=== PATIENT | male | born 1950 | race American Indian/Alaskan Native ===

== ENCOUNTER 2020-01-03 07:47 | Inpatient (IN) | payer MEDICARE ==
--- NOTE | 2020-01-03 08:20 | Emergency Department Report ---
HPI - General Chief Complaint: Dyspnea/Respdistress Time Seen by Provider: 01/03/20 08:04 - [facility] HPI: Room 23 The patient is a 69-year-old male present with a chief complaint of shortness of breath. Patient is visiting from out of town and states he normally receives dialysis every Saturday, and Saturday. Patient states he did not have dialysis arranged for his visit and was last dialyzed on 12/29/2019 while in the hospital.. Patient complained of shortness of breath for the past 2 hours. EMS was called and the patient was found to be hypoxic to 70% on room air. Patient was placed on CPAP and had a SPO2 in the low 90s. Patient was switched over to BiPAP upon arrival to the ED has a sat of 100% currently. Patient admits to an occasional cough but denies fever. ED Past Medical Hx - Past Medical History Hx Hypertension: Yes Hx Congestive Heart Failure: Yes Hx Diabetes: Yes Hx Renal Disease: Yes (ESRD) - Family History Family history: no significant - Social History Smoking Status: Never Smoker Substance Use Type: None ED Review of Systems ROS: Stated complaint: RESPIRATORY DISTRESS Other details as noted in HPI Constitutional: denies: fever Respiratory: cough, shortness of breath Endocrine: no symptoms reported Physical Exam - Physical Exam Vital Signs: Vital Signs 01/03/20 01/03/20 01/03/20 07:51 08:00 08:03 Temperature 97.8 F Pulse Rate 101 H Respiratory 15 Rate Blood Pressure 158/104 147/96 O2 Sat by Pulse 95 99 Oximetry Physical Exam: GENERAL: The patient is well-developed well-nourished male sitting on stretcher with BiPAP in place not appearing to be in acute distress. [] HEENT: Normocephalic. Atraumatic. Extraocular motions are intact. Patient has moist mucous membranes. NECK: Supple. Trachea midline CHEST/LUNGS: Clear to auscultation. There is no respiratory distress noted. HEART/CARDIOVASCULAR: Regular. There is no tachycardia. There is no gallop rub or murmur. ABDOMEN: Abdomen is soft, nontender. Patient has normal bowel sounds. There is no abdominal distention. SKIN: There is no rash. There is no edema. There is no diaphoresis. NEURO: The patient is awake, alert, and oriented. The patient is cooperative. The patient has normal speech MUSCULOSKELETAL: There is no evidence of acute injury. ED Course Vital Signs 01/03/20 01/03/20 01/03/20 07:51 08:00 08:03 Temperature 97.8 F Pulse Rate 101 H Respiratory 15 Rate Blood Pressure 158/104 147/96 O2 Sat by Pulse 95 99 Oximetry - Consultations Consultation #1: 01/03/20 11:56 Case discussed with solar power installer on-call Dr. Romeo- will arrange for hemodialysis ED Medical Decision Making - Lab Data Result diagrams: 01/03/20 09:11 01/03/20 09:11 Laboratory Tests 01/03/20 01/03/20 01/03/20 08:10 09:11 09:11 WBC 5.7 RBC 3.45 L Hgb 8.6 L Hct 29.0 L MCV 84 MCH 25 L MCHC 30 L RDW 19.3 H Plt Count 211 Lymph % (Auto) 5.9 L [place] % (Auto) 10.6 H Eos % (Auto) 0.7 Baso % (Auto) 1.1 Lymph # (Auto) 0.3 L [place] # (Auto) 0.6 Eos # (Auto) 0.0 Baso # (Auto) 0.1 Seg Neutrophils % 81.7 H Seg Neutrophils # 4.7 PT 15.3 H INR 1.18 H ABG pH 7.345 L ABG pCO2 34.7 ABG pO2 81.8 ABG HCO3 18.5 L ABG O2 Saturation 97.0 ABG O2 Content 11.2 ABG Base Excess -6.5 L ABG Hemoglobin 8.4 L ABG Carboxyhemoglobin 2.3 ABG Methemoglobin 0.4 Oxyhemoglobin 94.3 L FiO2 35 Sodium Potassium Chloride Carbon Dioxide Anion Gap BUN Creatinine Estimated GFR BUN/Creatinine Ratio Glucose Calcium Total Creatine Kinase CK-MB (CK-2) CK-MB (CK-2) Rel Index Troponin T NT-Pro-B Natriuret Pep 01/03/20 09:11 WBC RBC Hgb Hct MCV MCH MCHC RDW Plt Count Lymph % (Auto) [place] % (Auto) Eos % (Auto) Baso % (Auto) Lymph # (Auto) [place] # (Auto) Eos # (Auto) Baso # (Auto) Seg Neutrophils % Seg Neutrophils # PT INR ABG pH ABG pCO2 ABG pO2 ABG HCO3 ABG O2 Saturation ABG O2 Content ABG Base Excess ABG Hemoglobin ABG Carboxyhemoglobin ABG Methemoglobin Oxyhemoglobin FiO2 Sodium 138 Potassium 5.3 H Chloride 104.6 Carbon Dioxide 12 L Anion Gap 27 BUN 78 H Creatinine 3.6 H Estimated GFR 20 BUN/Creatinine Ratio 22 Glucose 143 H Calcium 9.5 Total Creatine Kinase 92 CK-MB (CK-2) 4.9 H CK-MB (CK-2) Rel Index 5.3 H Troponin T 0.068 H NT-Pro-B Natriuret Pep 81733 H - EKG Data -: EKG Interpreted by Me EKG shows normal: sinus rhythm Rate: normal - EKG Data When compared to previous EKG there are: previous EKG unavailable Interpretation: nonspecific ST-T wave amado (T wave inversion in lead aVL), other (PVC.) - Radiology Data Radiology results: report reviewed (Chest x-ray), image reviewed (Chest x-ray) interpreted by me: Chest d-faz-[id number] overload, no pneumothorax. Vas-Cath in place [facility] [address] [place] [address] XRay Report Signed Patient: MERLYN RODNEY MR#: [id number] : 1950 Acct:[id number] Age/Sex: 69 / M ADM Date: 01/03/20 Loc: ED Attending Dr: Ordering Physician: SALVATORE DELACRUZ MD Date of Service: 01/03/20 Procedure(s): XR chest 1V ap Accession Number(s): [id number] cc: SALVATORE DELACRUZ MD Fluoro Time In Minutes: CHEST 1 VIEW INDICATION: Shortness of breath COMPARISON: 12/14/2019 FINDINGS: SUPPORT DEVICES: Hemodialysis catheters tip in superior vena cava HEART / MEDIASTINUM: No significant abnormality. LUNGS / PLEURA: Persistent bilateral pulmonary process with small bilateral pleural effusions. No pneumothorax. ADDITIONAL FINDINGS: IMPRESSION: 1. No significant interval change as compared to previous exam Signer Name: Sarthak Martinez MD Signed: 01/03/2020 9:21 AM Workstation Name: [id number] Transcribed By: LETITIA Dictated By: Sarthak Martinez MD Electronically Authenticated By: Sarthak Martinez MD Signed Date/Time: 01/03/20920 DD/ 9 TD/TT: - Differential Diagnosis Pulmonary edema, pneumonia, CHF exacerbation, Critical care attestation.: If time is entered above; I have spent that time in minutes in the direct care of this critically ill patient, excluding procedure time. ED Disposition Clinical Impression: Hypoxia, Pulmonary edema, ESRD needing dialysis, Hyperkalemia, Uremia Disposition: OP ADMIT IP TO THIS HOSP Is pt being admited?: Yes Does the pt Need Aspirin: Yes Condition: Fair Instructions: Pulmonary Edema (ED) Referrals: PRIMARY CARE, [Primary Care Provider] - 3-5 Days Time of Disposition: 11:58 (Hospitalist paged)
[2020-01-03 08:46] LABS: ABG Base Excess -6.5 mmol/L (-2.0-3.0); ABG HCO3 18.5 mmol/L (20.0-26.0); ABG Methemoglobin 0.4 % (0.0-1.5); ABG PCO2 34.7 mm Hg; ABG PH 7.345 pH Units (7.350-7.450); ABG PO2 81.8 mm Hg (80.0-90.0)
--- NOTE | 2020-01-03 09:25 | XRay Report ---
CHEST 1 VIEW INDICATION: Shortness of breath COMPARISON: 12/14/2019 FINDINGS: SUPPORT DEVICES: Hemodialysis catheters tip in superior vena cava HEART / MEDIASTINUM: No significant abnormality. LUNGS / PLEURA: Persistent bilateral pulmonary process with small bilateral pleural effusions. No pne umothorax. ADDITIONAL FINDINGS: IMPRESSION: 1. No significant interval change as compared to previous exam Signer Name: Sarthak Martinez MD Signed: 01/03/2020 9:21 AM Workstation Name: [id number]
[2020-01-03 10:09] LABS: Basophils # (Auto) 0.1 K/mm3 (0.0-0.1); Basophils % (Auto) 1.1 % (0.0-1.8); Eosinophils % (Auto) 0.7 % (0.0-4.3); INR 1.18 (0.87-1.13); Lymphocytes # (Auto) 0.3 K/mm3 (1.2-5.4); Lymphocytes % (Auto) 5.9 % (13.4-35.0); Mean Corpuscular HGB Conc 30 % (32-34); Mean Corpuscular Volume 84 fl (84-94); Monocytes # (Auto) 0.6 K/mm3 (0.0-0.8); Monocytes % (Auto) 10.6 % (0.0-7.3); Platelet Count 211 K/mm3 (140-440); Red Blood Count 3.45 M/mm3 (3.65-5.03); Red Cell Distribution Width 19.3 % (13.2-15.2)
[2020-01-03 10:22] LABS: Hemoglobin 8.6 gm/dl (11.8-15.2)
[2020-01-03 11:02] LABS: Creatine Kinase MB 4.9 ng/mL (0.0-4.0)
[2020-01-03 11:26] LABS: Calcium 9.5 mg/dL (8.4-10.2)
--- NOTE | 2020-01-03 12:36 | Consultation ---
History of Present Illness - Reason for Consult Consult date: 01/03/20 end stage renal disease - History of Present Illness 69 year old M with ESRD on HD TTS admitted to the [facility] with DAMARIS. Pt is visiting out of town and last had HD on 12/29/2019. Pt has been found to have hypoxia. He is on bipap. He has had some cough. He denies N/V, fever. ROS: As in HPI otherwise 12 point review of systems -ve - Past Medical History/Past Surgical history Hx Hypertension: Yes Hx Congestive Heart Failure: Yes Hx Diabetes: Yes Hx Renal Disease: Yes (ESRD) - Family History Family history: no significant - Social History Smoking Status: Never Smoker Substance Use Type: None Medications and Allergies Allergies Allergy/AdvReac Type Severity Reaction Status Date / Time morphine Allergy Unknown Verified 01/03/20 08:24 Exam - Vital Signs Vital signs: Vital Signs BP Pulse Ox 158/104 95 01/03/20 07:51 01/03/20 07:51 - Physical Exam Narrative exam: GENERAL: AAOX3, on bipap HEENT: Normocephalic. Atraumatic. Extraocular motions are intact. Patient has moist mucous membranes. NECK: Supple. Trachea midline CHEST/LUNGS: Coarse BS BL HEART/CARDIOVASCULAR: Regular. There is no tachycardia. There is no gallop rub or murmur. ABDOMEN: Abdomen is soft, nontender. Patient has normal bowel sounds. There is no abdominal distention. SKIN: There is no rash. NEURO: The patient is awake, alert, and oriented. The patient is cooperative. The patient has normal speech MUSCULOSKELETAL: There is no evidence of acute injury. Results - Lab Results 01/03/20 09:11 01/03/20 09:11 Most recent lab results ABG pH 7.345 pH Units (7.350-7.450) L 01/03/20 08:10 ABG pCO2 34.7 mm Hg 01/03/20 08:10 ABG pO2 81.8 mm Hg (80.0-90.0) 01/03/20 08:10 ABG HCO3 18.5 mmol/L (20.0-26.0) L 01/03/20 08:10 ABG O2 Saturation 97.0 % (95.0-99.0) 01/03/20 08:10 Calcium 9.5 mg/dL (8.4-10.2) 01/03/20 09:11 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: -HD ordered for today -low K diet -Renally dose all meds -Likely will need HD again tomorrow -Strict I/Os
[2020-01-03] MEDS ORDERED: ALBUTEROL 2.5 MG/3 ML NEBU IH PRN (12:51)
[2020-01-03] MEDS ORDERED: ACETAMINOPHEN 325 MG TAB PO PRN (12:51)
[2020-01-03] MEDS ORDERED: ONDANSETRON 4 MG/2 ML INJ IV PRN (12:51)
[2020-01-03] MEDS ORDERED: SODIUM CHLORIDE 0.9% 100 ML IV PRN (15:28)
[2020-01-03 15:29] LABS: Hepatitis B Surface Antigen Non-Reactive (Negative); Hepatitis C Virus Antibody Non-Reactive (NonReactive)
--- NOTE | 2020-01-03 16:03 | History and Physical Report ---
History of Present Illness Date of admission: 01/03/20 12:51 Chief complaint: I cannot breathe History of present illness: 69 YO Male with ESRD on HD(T,R,Sa) last underwent dialysis 5 days ago, HTN, DM, CHF presents to ED for evaluation. Patient states that he has experienced shortness of breath over the past 1 day with worsening symptoms over the past 2 to 3 hours. EMS was notified and upon arrival the patient was found to be in distress with a pulse oximetry 70% on room air. Patient placed on submental oxygen and transported to [facility] for further care and evaluation of the aforementi oned symptoms. Patient seen and evaluated in the emergency department. All lab and imaging studies reviewed. Patient found to have a pulse oximetry of 70% on room air which is consistent with acute hypoxemic respiratory failure. Patient also found to have end-stage renal disease, fluid overload in need of urgent dialysis. Nephrology team consulted in ED. Patient placed on noninvasive positive pressure ventilation with mild improvement in symptoms. The patient is lethargic and using accessory muscles to breathe during my exam and interview and is unable to provide further detailed history. No further history obtainable. No reports of fever, chills, chest pain, palpitations, productive cough, skin rash, recent ill contacts, unilateral leg swelling, calf pain, or known exposure to COVID-19. All medication listed at time of admission has been reconciled. Advanced care planning conducted in ED. No prior admission for review. Past History Past Medical History: ESRD, heart failure, hypertension Past Surgical History: Other (Dialysis access) Social history: . denies: smoking, alcohol abuse, prescription drug abuse Family history: diabetes, hypertension Medications and Allergies Allergies Allergy/AdvReac Type Severity Reaction Status Date / Time morphine Allergy Unknown Verified 01/03/20 08:24 Active Meds: Active Medications Acetaminophen (Tylenol) 650 mg PO Q4H PRN PRN Reason: Pain MILD(1-3)/Fever >100.5/MAYORGA Albuterol (Proventil) 2.5 mg IH Q4H PRN PRN Reason: Shortness Of Breath Sodium Chloride (Nacl 0.9%) 100 mls @ 999 mls/hr IV PAULIE PRN PRN Reason: Hypotension Ondansetron HCl (Zofran) 4 mg IV Q8H PRN PRN Reason: Nausea And Vomiting Sodium Chloride (Sodium Chloride Flush Syringe 10 Ml) 10 ml IV BID REED Sodium Chloride (Sodium Chloride Flush Syringe 10 Ml) 10 ml IV PRN PRN PRN Reason: LINE FLUSH Review of Systems Constitutional: no weight loss, no weight gain, no fever, no chills, no weakness, no malaise, no lethargy Ears, nose, mouth and throat: no ear pain, no ear discharge, no decreased hearing, no nasal congestion Cardiovascular: shortness of breath, no orthopnea Respiratory: no cough, no cough with sputum, no hemoptysis Gastrointestinal: no abdominal pain, no nausea, no constipation, no change in bowel habits Genitourinary Male: no hematuria, no flank pain, no nocturia Rectal: no pain, no incontinence, no bleeding Musculoskeletal: no neck stiffness, no neck pain, no shooting arm pain, no arm numbness/tingling, no low back pain, no shooting leg pain Integumentary: no rash, no pruritis, no redness, no sores, no wounds, no jaundice Neurological: no transient paralysis, no paralysis, no weakness, no numbness, no seizures, no syncope, no tremors Psychiatric: no anxiety, no memory loss, no sleep disturbances, no insomnia, no hypersomnia, no change in appetite, no change in libido, no suicidal ideation Endocrine: no cold intolerance, no heat intolerance, no excessive thirst, no polydipsia, no polyuria, no excessive sweating, no flushing Hematologic/Lymphatic: no easy bruising, no easy bleeding, no lymphadenopathy, no lymphedema Allergic/Immunologic: no urticaria, no wheezing, no anaphylaxis, no angioedema Exam - Constitutional Vitals: Temp Pulse Resp BP Pulse Ox 97.8 F 85 25 H 145/94 100 01/03/20 08:03 01/03/20 12:11 01/03/20 12:11 01/03/20 12:11 01/03/20 12:11 General appearance: Present: mild distress, obese - EENT Eyes: Present: PERRL ENT: hearing intact, clear oral mucosa - Neck Neck: Present: supple, normal ROM - Respiratory Respiratory effort: normal Respiratory: bilateral: diminished, rhonchi - Cardiovascular Heart Sounds: Present: S1 & S2. Absent: rub, click - Extremities Extremities: pulses symmetrical, No edema Peripheral Pulses: within normal limits - Abdominal General gastrointestinal: Present: soft, non-tender, non-distended, normal bowel sounds Male genitourinary: Present: normal - Integumentary Integumentary: Present: clear, warm, dry - Musculoskeletal Musculoskeletal: generalized weakness - Psychiatric Psychiatric: no intact judgment & insight - Neurologic Neurologic: CNII-XII intact, moves all extremities, no gait normal HEART Score - HEART Score Troponin: Troponin T 0.068 ng/mL (0.00-0.029) H 01/03/20 09:11 Results - Labs CBC & Chem 7: 01/03/20 09:11 01/03/20 09:11 Labs: Abnormal lab results 01/03/20 01/03/20 01/03/20 Range/Units 08:10 09:11 09:11 RBC 3.45 L (3.65-5.03) M/mm3 Hgb 8.6 L (11.8-15.2) gm/dl Hct 29.0 L (35.5-45.6) % MCH 25 L (28-32) pg MCHC 30 L (32-34) % RDW 19.3 H (13.2-15.2) % Lymph % (Auto) 5.9 L (13.4-35.0) % [place] % (Auto) 10.6 H (0.0-7.3) % Lymph # (Auto) 0.3 L (1.2-5.4) K/mm3 Seg Neutrophils % 81.7 H (40.0-70.0) % PT 15.3 H (12.2-14.9) Sec. INR 1.18 H (0.87-1.13) ABG pH 7.345 L (7.350-7.450) pH Units ABG HCO3 18.5 L (20.0-26.0) mmol/L ABG Base Excess -6.5 L (-2.0-3.0) mmol/L ABG Hemoglobin 8.4 L (14.0-18.0) gm/dl Oxyhemoglobin 94.3 L (95.0-99.0) % Potassium (3.6-5.0) mmol/L Carbon Dioxide (22-30) mmol/L BUN (9-20) mg/dL Creatinine (0.8-1.3) mg/dL Glucose (75-100) mg/dL CK-MB (CK-2) (0.0-4.0) ng/mL CK-MB (CK-2) Rel Index (0-4) Troponin T (0.00-0.029) ng/mL NT-Pro-B Natriuret Pep (0-900) pg/mL 01/03/20 Range/Units 09:11 RBC (3.65-5.03) M/mm3 Hgb (11.8-15.2) gm/dl Hct (35.5-45.6) % MCH (28-32) pg MCHC (32-34) % RDW (13.2-15.2) % Lymph % (Auto) (13.4-35.0) % [place] % (Auto) (0.0-7.3) % Lymph # (Auto) (1.2-5.4) K/mm3 Seg Neutrophils % (40.0-70.0) % PT (12.2-14.9) Sec. INR (0.87-1.13) ABG pH (7.350-7.450) pH Units ABG HCO3 (20.0-26.0) mmol/L ABG Base Excess (-2.0-3.0) mmol/L ABG Hemoglobin (14.0-18.0) gm/dl Oxyhemoglobin (95.0-99.0) % Potassium 5.3 H (3.6-5.0) mmol/L Carbon Dioxide 12 L (22-30) mmol/L BUN 78 H (9-20) mg/dL Creatinine 3.6 H (0.8-1.3) mg/dL Glucose 143 H (75-100) mg/dL CK-MB (CK-2) 4.9 H (0.0-4.0) ng/mL CK-MB (CK-2) Rel Index 5.3 H (0-4) Troponin T 0.068 H (0.00-0.029) ng/mL NT-Pro-B Natriuret Pep 33179 H (0-900) pg/mL Assessment and Plan - Patient Problems (1) Acute hypoxemic respiratory failure Current Visit: Yes Status: Acute Plan to address problem: Chest x-ray, supplemental oxygen, nebulizer therapy, pulse oximetry, noninvasive positive pressure ventilation, urgent dialysis, (2) End stage renal disease Current Visit: Yes Status: Acute Plan to address problem: Strict I/O, monitor urine output every shift, daily weight, urgent dialysis as per renal team, avoid nephrotoxic agents. (3) Hypertension Current Visit: Yes Status: Acute Qualifiers: Hypertension type: essential hypertension Qualified Code(s): I10 - Essential (primary) hypertension Plan to address problem: Monitor blood pressure every shift, continue medical management. (4) Obesity hypoventilation syndrome Current Visit: Yes Status: Acute Plan to address problem: Supplemental oxygen, nebulizer therapy, pulse oximetry, increase physical activity at discharge, outpatient pulmonary follow-up for sleep study. (5) DVT prophylaxis Current Visit: Yes Status: Acute Plan to address problem: SCD to bilateral lower extremities while in bed, (6) Advance care planning Current Visit: Yes Status: Acute Plan to address problem: Disease education conducted, patient is full code, prognosis discussed, patient knowledges understanding and agreement with care plan, +30 minutes.
[2020-01-03] MEDS ORDERED: DOCUSATE SODIUM 100 MG CAP PO ONE (23:19)
--- NOTE | 2020-01-04 15:59 | Progress Note ---
Assessment and Plan Assessment: ESRD on Hemodialysis: Hyperkalemia: Volume overload: HTN: DM2: CHF: ACD due to ESRD: Plan: -S/P hemodialysis today for UF and clearance -Will place patient on outpatient T,T,S dialysis schedule -Low potassium diet -Fluid restriction of 1 liter per day -Renally dose all medications -Strict I/Os monitoring -Assess dialysis needs daily Subjective Date of service: 01/04/20 Principal diagnosis: ESRD Interval history: Patient seen lying in bed talking on cellphone. Objective - Vital Signs Vital signs: Vital Signs - 12hr 01/04/20 01/04/20 01/04/20 04:00 04:27 05:00 Temperature Pulse Rate 95 H 96 H 83 Pulse Rate [ 84 From Monitor] Respiratory 19 25 H 18 Rate Blood Pressure 140/93 140/93 O2 Sat by Pulse 100 100 100 Oximetry O2 Sat by Pulse Oximetry [ Anterior Bilateral Throughout] 01/04/20 01/04/20 01/04/20 06:00 07:00 08:00 Temperature 97.5 F L Pulse Rate 88 83 79 Pulse Rate [ From Monitor] Respiratory 20 17 13 Rate Blood Pressure 127/83 126/76 130/78 O2 Sat by Pulse 100 100 Oximetry O2 Sat by Pulse Oximetry [ Anterior Bilateral Throughout] 01/04/20 01/04/20 01/04/20 09:20 09:30 09:45 Temperature 97.5 F L Pulse Rate 81 82 74 Pulse Rate [ From Monitor] Respiratory 18 Rate Blood Pressure 120/71 122/68 126/74 O2 Sat by Pulse Oximetry O2 Sat by Pulse Oximetry [ Anterior Bilateral Throughout] 01/04/20 01/04/20 01/04/20 10:00 10:15 10:30 Temperature Pulse Rate 74 76 66 Pulse Rate [ From Monitor] Respiratory Rate Blood Pressure 126/70 124/68 118/66 O2 Sat by Pulse Oximetry O2 Sat by Pulse Oximetry [ Anterior Bilateral Throughout] 01/04/20 01/04/20 01/04/20 10:45 11:00 11:15 Temperature Pulse Rate 72 80 82 Pulse Rate [ From Monitor] Respiratory Rate Blood Pressure 114/72 112/64 114/64 O2 Sat by Pulse Oximetry O2 Sat by Pulse Oximetry [ Anterior Bilateral Throughout] 01/04/20 01/04/20 01/04/20 11:30 11:45 12:00 Temperature Pulse Rate 80 80 72 Pulse Rate [ From Monitor] Respiratory Rate Blood Pressure 116/65 110/66 118/63 O2 Sat by Pulse Oximetry O2 Sat by Pulse Oximetry [ Anterior Bilateral Throughout] 01/04/20 01/04/20 01/04/20 12:15 12:30 12:50 Temperature Pulse Rate 56 L 71 75 Pulse Rate [ From Monitor] Respiratory Rate Blood Pressure 119/57 114/57 110/58 O2 Sat by Pulse Oximetry O2 Sat by Pulse Oximetry [ Anterior Bilateral Throughout] 01/04/20 01/04/20 01/04/20 13:10 13:43 14:01 Temperature 98.0 F Pulse Rate 75 83 Pulse Rate [ From Monitor] Respiratory 18 18 Rate Blood Pressure 110/58 102/57 O2 Sat by Pulse 100 100 Oximetry O2 Sat by Pulse 100 Oximetry [ Anterior Bilateral Throughout] 01/04/20 01/04/20 14:46 15:51 Temperature Pulse Rate Pulse Rate [ From Monitor] Respiratory 14 Rate Blood Pressure O2 Sat by Pulse 100 100 Oximetry O2 Sat by Pulse Oximetry [ Anterior Bilateral Throughout] - General Appearance General appearance: well-developed, appears stated age, fatigue EENT: ATNC, PERRL Neck: no JVD, supple Respiratory: Present: Decreased Breath Sounds Cardiology: S1S2 Gastrointestinal: normoactive bowel sounds Integumentary: warm and dry Neurologic: alert and oriented x3 Musculoskeletal: other (No edema) Psychiatric: mood/affect appropriate - Lab 01/03/20 09:11 01/03/20 09:11 Most recent lab results ABG pH 7.345 pH Units (7.350-7.450) L 01/03/20 08:10 ABG pCO2 34.7 mm Hg 01/03/20 08:10 ABG pO2 81.8 mm Hg (80.0-90.0) 01/03/20 08:10 ABG HCO3 18.5 mmol/L (20.0-26.0) L 01/03/20 08:10 ABG O2 Saturation 97.0 % (95.0-99.0) 01/03/20 08:10 Calcium 9.5 mg/dL (8.4-10.2) 01/03/20 09:11 Medications & Allergies - Medications Allergies/Adverse Reactions: Allergies morphine Allergy (Verified 01/03/20 08:24) Unknown Active Medications: Generic Name Dose Route Start Last Admin Trade Name Freq PRN Reason Stop Dose Admin Acetaminophen 650 mg 01/03/20 12:51 Tylenol PO Q4H PRN Pain MILD(1-3)/Fever >100.5/MAYORGA Albuterol 2.5 mg 01/03/20 12:51 Proventil IH Q4H PRN Shortness Of Breath Sodium Chloride 100 mls @ 999 mls/hr 01/03/20 15:28 Nacl 0.9% IV PAULIE PRN Hypotension Ondansetron HCl 4 mg 01/03/20 12:51 Zofran IV Q8H PRN Nausea And Vomiting Sodium Chloride 10 ml 01/03/20 22:00 01/04/20 14:44 Sodium Chloride Flush Syringe 10 Ml IV Not Given BID REED Sodium Chloride 10 ml 01/03/20 12:51 Sodium Chloride Flush Syringe 10 Ml IV PRN PRN LINE FLUSH
--- NOTE | 2020-01-04 17:00 | Progress Note ---
Assessment and Plan - Patient Problems (1) Acute hypoxemic respiratory failure Current Visit: Yes Status: Acute Plan to address problem: Chest x-ray, supplemental oxygen, nebulizer therapy, pulse oximetry, noninvasive positive pressure ventilation, urgent dialysis, Hypoxia much improved Patient more comfortable at rest (2) End stage renal disease Current Visit: Yes Status: Acute Plan to address problem: Strict I/O, monitor urine output every shift, daily weight, urgent dialysis as per renal team, avoid nephrotoxic agents. Continue hemodialysis (3) Hypertension Current Visit: Yes Status: Acute Qualifiers: Hypertension type: essential hypertension Qualified Code(s): I10 - Essential (primary) hypertension Plan to address problem: Monitor blood pressure every shift, continue medical management. Blood pressure controlled (4) Obesity hypoventilation syndrome Current Visit: Yes Status: Acute Plan to address problem: Supplemental oxygen, nebulizer therapy, pulse oximetry, increase physical activity at discharge, outpatient pulmonary follow-up for sleep study. Patient counseled about losing weight in the long-term (5) DVT prophylaxis Current Visit: Yes Status: Acute Plan to address problem: SCD to bilateral lower extremities while in bed, (6) Advance care planning Current Visit: Yes Status: Acute Plan to address problem: Disease education conducted, patient is full code, prognosis discussed, patient knowledges understanding and agreement with care plan, +30 minutes. Patient to be transferred from [facility] to telemetry Stable otherwise Discharge planning for tomorrow if nephrology is agreeable Subjective Date of service: 01/04/20 Principal diagnosis: ESRD, volume overload, CHF exacerbation Interval history: 69 YO Male with ESRD on HD(T,R,Sa) last underwent dialysis 5 days ago, HTN, DM, CHF presents to ED for evaluation. Patient states that he has experienced shortness of breath over the past 1 day with worsening symptoms over the past 2 to 3 hours. EMS was notified and upon arrival the patient was found to be in distress with a pulse oximetry 70% on room air. Patient placed on submental oxygen and transported to [facility] for further care and evaluation of the aforementioned symptoms. Patient seen and evaluated in the emergency department. All lab and imaging studies reviewed. Patient found to have a pulse oximetry of 70% on room air which is consistent with acute hypoxemic respiratory failure. Patient also found to have end-stage renal disease, fluid overload in need of urgent dialysis. Nephrology team consulted in ED. Patient placed on noninvasive positive pressure ventilation with mild improvement in symptoms. The patient is lethargic and using accessory muscles to breathe during my exam and interview and is unable to provide further detailed history. No further history obtainable. No reports of fever, chills, chest pain, palpitations, productive cough, skin rash, recent ill contacts, unilateral leg swelling, calf pain, or known exposure to COVID-19. All medication listed at time of admission has been reconciled. Advanced care planning conducted in ED. No prior admission for review. Objective - Constitutional Vitals: Vital Signs - 12hr 01/04/20 01/04/20 01/04/20 06:00 07:00 08:00 Temperature 97.5 F L Pulse Rate 88 83 79 Respiratory 20 17 13 Rate Blood Pressure 127/83 126/76 130/78 O2 Sat by Pulse 100 100 Oximetry O2 Sat by Pulse Oximetry [ Anterior Bilateral Throughout] 01/04/20 01/04/20 01/04/20 09:20 09:30 09:45 Temperature 97.5 F L Pulse Rate 81 82 74 Respiratory 18 Rate Blood Pressure 120/71 122/68 126/74 O2 Sat by Pulse Oximetry O2 Sat by Pulse Oximetry [ Anterior Bilateral Throughout] 01/04/20 01/04/20 01/04/20 10:00 10:15 10:30 Temperature Pulse Rate 74 76 66 Respiratory Rate Blood Pressure 126/70 124/68 118/66 O2 Sat by Pulse Oximetry O2 Sat by Pulse Oximetry [ Anterior Bilateral Throughout] 01/04/20 01/04/20 01/04/20 10:45 11:00 11:15 Temperature Pulse Rate 72 80 82 Respiratory Rate Blood Pressure 114/72 112/64 114/64 O2 Sat by Pulse Oximetry O2 Sat by Pulse Oximetry [ Anterior Bilateral Throughout] 01/04/20 01/04/20 01/04/20 11:30 11:45 12:00 Temperature Pulse Rate 80 80 72 Respiratory Rate Blood Pressure 116/65 110/66 118/63 O2 Sat by Pulse Oximetry O2 Sat by Pulse Oximetry [ Anterior Bilateral Throughout] 01/04/20 01/04/20 01/04/20 12:15 12:30 12:50 Temperature Pulse Rate 56 L 71 75 Respiratory Rate Blood Pressure 119/57 114/57 110/58 O2 Sat by Pulse Oximetry O2 Sat by Pulse Oximetry [ Anterior Bilateral Throughout] 01/04/20 01/04/20 01/04/20 13:10 13:43 14:01 Temperature 98.0 F Pulse Rate 75 83 Respiratory 18 18 Rate Blood Pressure 110/58 102/57 O2 Sat by Pulse 100 100 Oximetry O2 Sat by Pulse 100 Oximetry [ Anterior Bilateral Throughout] 01/04/20 01/04/20 01/04/20 14:46 15:00 15:51 Temperature Pulse Rate 82 Respiratory 14 17 Rate Blood Pressure 102/29 O2 Sat by Pulse 100 100 100 Oximetry O2 Sat by Pulse Oximetry [ Anterior Bilateral Throughout] 01/04/20 01/04/20 16:00 16:01 Temperature 98.0 F Pulse Rate 99 H Respiratory 14 Rate Blood Pressure 102/29 O2 Sat by Pulse 97 Oximetry O2 Sat by Pulse Oximetry [ Anterior Bilateral Throughout] General appearance: Present: mild distress - EENT Eyes: PERRL, EOM intact ENT: hearing intact, clear oral mucosa Ears: bilateral: normal - Neck Neck: supple, normal ROM - Respiratory Respiratory effort: normal Respiratory: bilateral: CTA, rales - Breasts Breasts: normal - Cardiovascular Rhythm: regular Heart Sounds: Present: S1 & S2. Absent: gallop, rub Extremities: pulses intact, No edema, normal color, Full ROM - Gastrointestinal General gastrointestinal: Present: soft, non-tender, non-distended, normal bowel sounds - Genitourinary Male genitourinary: normal - Integumentary Integumentary: clear, warm, dry - Musculoskeletal Musculoskeletal: 1, strength equal bilaterally - Neurologic Neurologic: moves all extremities - Psychiatric Psychiatric: memory intact, appropriate mood/affect, intact judgment & insight - Labs CBC & Chem 7: 01/03/20 09:11 01/03/20 09:11 HEART Score - HEART Score Troponin: Troponin T 0.068 ng/mL (0.00-0.029) H 01/03/20 09:11
--- NOTE | 2020-01-05 10:31 | Progress Note ---
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: Plan: -no indication for HD today -Low potassium diet -Fluid restriction of 1 liter per day -Renally dose all medications -Strict I/Os monitoring -Assess dialysis needs daily Aleksandr Chavez MD [phone] Subjective Date of service: 01/05/20 Principal diagnosis: ESRD, volume overload, CHF exacerbation Interval history: tolerated HD yesterday Objective - Vital Signs Vital signs: Vital Signs - 12hr 01/04/20 01/05/20 01/05/20 23:14 00:00 03:51 Temperature 99.3 F 98.0 F Pulse Rate 88 86 88 Respiratory 18 18 Rate Blood Pressure 92/53 109/63 O2 Sat by Pulse 98 99 Oximetry 01/05/20 01/05/20 05:30 07:27 Temperature 98.4 F Pulse Rate 116 H 88 Respiratory 20 Rate Blood Pressure 119/64 O2 Sat by Pulse 97 Oximetry - General Appearance General appearance: well-developed, cachectic EENT: ATNC, PERRL, mucous membranes moist Neck: no JVD, no carotid bruit Respiratory: Present: Clear to Ascultation. Absent: Rales, Ronchi Cardiology: regular, S1S2 Gastrointestinal: normoactive bowel sounds, no tenderness, no distended, no masses, no guarding Integumentary: no rash, warm and dry Neurologic: no focal deficit, no asterixis, alert and oriented x3 Musculoskeletal: other (no edema in BLE) Psychiatric: mood/affect appropriate, cooperative - Lab 01/03/20 09:11 01/03/20 09:11 Most recent lab results ABG pH 7.345 pH Units (7.350-7.450) L 01/03/20 08:10 ABG pCO2 34.7 mm Hg 01/03/20 08:10 ABG pO2 81.8 mm Hg (80.0-90.0) 01/03/20 08:10 ABG HCO3 18.5 mmol/L (20.0-26.0) L 01/03/20 08:10 ABG O2 Saturation 97.0 % (95.0-99.0) 01/03/20 08:10 Calcium 9.5 mg/dL (8.4-10.2) 01/03/20 09:11 Medications & Allergies - Medications Allergies/Adverse Reactions: Allergies morphine Allergy (Verified 01/03/20 08:24) Unknown Active Medications: Generic Name Dose Route Start Last Admin Trade Name Freq PRN Reason Stop Dose Admin Acetaminophen 650 mg 01/03/20 12:51 Tylenol PO Q4H PRN Pain MILD(1-3)/Fever >100.5/MAYORGA Albuterol 2.5 mg 01/03/20 12:51 Proventil IH Q4H PRN Shortness Of Breath Sodium Chloride 100 mls @ 999 mls/hr 01/03/20 15:28 Nacl 0.9% IV PAULIE PRN Hypotension Ondansetron HCl 4 mg 01/03/20 12:51 Zofran IV Q8H PRN Nausea And Vomiting Sodium Chloride 10 ml 01/03/20 22:00 01/05/20 09:12 Sodium Chloride Flush Syringe 10 Ml IV 10 ml BID REED Administration Sodium Chloride 10 ml 01/03/20 12:51 Sodium Chloride Flush Syringe 10 Ml IV PRN PRN LINE FLUSH
--- NOTE | 2020-01-05 14:54 | Progress Note ---
Assessment and Plan Assessment and plan: Patient Problems (1) Acute hypoxemic respiratory failure Current Visit: Yes Status: Acute Plan to address problem: Improved. (2) End stage renal disease Current Visit: Yes Status: Acute Plan to address problem: Refused HD today. Plan for HD tomorrow (3) Hypertension Current Visit: Yes Status: Acute Qualifiers: Hypertension type: essential hypertension Qualified Code(s): I10 - Essentia l (primary) hypertension Plan to address problem: Monitor blood pressure every shift, continue medical management. Blood pressure controlled (4) Obesity hypoventilation syndrome Current Visit: Yes Status: Acute Plan to address problem: Supplemental oxygen, nebulizer therapy, pulse oximetry, increase physical activity at discharge, outpatient pulmonary follow-up for sleep study. Patient counseled about losing weight in the long-term (5) DVT prophylaxis Current Visit: Yes Status: Acute Plan to address problem: SCD to bilateral lower extremities while in bed, (6) Advance care planning Current Visit: Yes Status: Acute Plan to address problem: Disease education conducted, patient is full code, prognosis discussed, patient knowledges understanding and agreement with care plan, +30 minutes. Patient to be transferred from [facility] to telemetry Stable otherwise Discharge tomorrow History Interval history: See assessment and plan Hospitalist Physical - Constitutional Vitals: Temp Pulse Resp BP Pulse Ox 97.3 F L 82 20 110/57 98 01/05/20 12:20 01/05/20 12:20 01/05/20 12:20 01/05/20 12:20 01/05/20 12:20 General appearance: Present: no acute distress - EENT Eyes: Present: PERRL - Neck Neck: Present: supple - Respiratory Respiratory: bilateral: CTA - Cardiovascular Heart Sounds: Present: S1 & S2 - Abdominal General gastrointestinal: soft, non-tender, non-distended - Psychiatric Psychiatric: appropriate mood/affect - Neurologic Neurologic: CNII-XII intact HEART Score - HEART Score Troponin: Troponin T 0.068 ng/mL (0.00-0.029) H 01/03/20 09:11 Results - Labs CBC & Chem 7: 01/03/20 09:11 01/03/20 09:11 Labs: Laboratory Last Values WBC 5.7 K/mm3 (4.5-11.0) 01/03/20 09:11 RBC 3.45 M/mm3 (3.65-5.03) L 01/03/20 09:11 Hgb 8.6 gm/dl (11.8-15.2) L 01/03/20 09:11 Hct 29.0 % (35.5-45.6) L 01/03/20 09:11 MCV 84 fl (84-94) 01/03/20 09:11 MCH 25 pg (28-32) L 01/03/20 09:11 MCHC 30 % (32-34) L 01/03/20 09:11 RDW 19.3 % (13.2-15.2) H 01/03/20 09:11 Plt Count 211 K/mm3 (140-440) 01/03/20 09:11 Lymph % (Auto) 5.9 % (13.4-35.0) L 01/03/20 09:11 [place] % (Auto) 10.6 % (0.0-7.3) H 01/03/20 09:11 Eos % (Auto) 0.7 % (0.0-4.3) 01/03/20 09:11 Baso % (Auto) 1.1 % (0.0-1.8) 01/03/20 09:11 Lymph # (Auto) 0.3 K/mm3 (1.2-5.4) L 01/03/20 09:11 [place] # (Auto) 0.6 K/mm3 (0.0-0.8) 01/03/20 09:11 Eos # (Auto) 0.0 K/mm3 (0.0-0.4) 01/03/20 09:11 Baso # (Auto) 0.1 K/mm3 (0.0-0.1) 01/03/20 09:11 Seg Neutrophils % 81.7 % (40.0-70.0) H 01/03/20 09:11 Seg Neutrophils # 4.7 K/mm3 (1.8-7.7) 01/03/20 09:11 PT 15.3 Sec. (12.2-14.9) H 01/03/20 09:11 INR 1.18 (0.87-1.13) H 01/03/20 09:11 ABG pH 7.345 pH Units (7.350-7.450) L 01/03/20 08:10 ABG pCO2 34.7 mm Hg 01/03/20 08:10 ABG pO2 81.8 mm Hg (80.0-90.0) 01/03/20 08:10 ABG HCO3 18.5 mmol/L (20.0-26.0) L 01/03/20 08:10 ABG O2 Saturation 97.0 % (95.0-99.0) 01/03/20 08:10 ABG O2 Content 11.2 (0.0-44) 01/03/20 08:10 ABG Base Excess -6.5 mmol/L (-2.0-3.0) L 01/03/20 08:10 ABG Hemoglobin 8.4 gm/dl (14.0-18.0) L 01/03/20 08:10 ABG Carboxyhemoglobin 2.3 % (0.0-5.0) 01/03/20 08:10 ABG Methemoglobin 0.4 % (0.0-1.5) 01/03/20 08:10 Oxyhemoglobin 94.3 % (95.0-99.0) L 01/03/20 08:10 FiO2 35 % 01/03/20 08:10 Sodium 138 mmol/L (137-145) 01/03/20 09:11 Potassium 5.3 mmol/L (3.6-5.0) H 01/03/20 09:11 Chloride 104.6 mmol/L (98-107) 01/03/20 09:11 Carbon Dioxide 12 mmol/L (22-30) L 01/03/20 09:11 Anion Gap 27 mmol/L 01/03/20 09:11 BUN 78 mg/dL (9-20) H 01/03/20 09:11 Creatinine 3.6 mg/dL (0.8-1.3) H 01/03/20 09:11 Estimated GFR 20 ml/min 01/03/20 09:11 BUN/Creatinine Ratio 22 % 01/03/20 09:11 Glucose 143 mg/dL (75-100) H 01/03/20 09:11 POC Glucose 124 (70-105) H 01/05/20 07:32 Calcium 9.5 mg/dL (8.4-10.2) 01/03/20 09:11 Total Creatine Kinase 92 units/L (55-170) 01/03/20 09:11 CK-MB (CK-2) 4.9 ng/mL (0.0-4.0) H 01/03/20 09:11 CK-MB (CK-2) Rel Index 5.3 (0-4) H 01/03/20 09:11 Troponin T 0.068 ng/mL (0.00-0.029) H 01/03/20 09:11 NT-Pro-B Natriuret Pep 54578 pg/mL (0-900) H 01/03/20 09:11 Hepatitis A IgM Ab Non-reactive (NonReactive) 01/03/20 14:44 Hep Bs Antigen Non-reactive (Negative) 01/03/20 14:44 Hep B Core IgM Ab Non-reactive (NonReactive) 01/03/20 14:44 Hepatitis C Antibody Non-reactive (NonReactive) 01/03/20 14:44 Albarran/IV: Voiding Method Toilet IV Catheter Type [Right Hand] INT / Saline Lock Active Medications - Current Medications Current Medications: Generic Name Dose Route Start Last Admin Trade Name Freq PRN Reason Stop Dose Admin Acetaminophen 650 mg 01/03/20 12:51 Tylenol PO Q4H PRN Pain MILD(1-3)/Fever >100.5/MAYORGA Albuterol 2.5 mg 01/03/20 12:51 Proventil IH Q4H PRN Shortness Of Breath Sodium Chloride 100 mls @ 999 mls/hr 01/03/20 15:28 Nacl 0.9% IV PAULIE PRN Hypotension Ondansetron HCl 4 mg 01/03/20 12:51 Zofran IV Q8H PRN Nausea And Vomiting Sodium Chloride 10 ml 01/03/20 22:00 01/05/20 09:12 Sodium Chloride Flush Syringe 10 Ml IV 10 ml BID REED Administration Sodium Chloride 10 ml 01/03/20 12:51 Sodium Chloride Flush Syringe 10 Ml IV PRN PRN LINE FLUSH
[2020-01-05 16:06] LABS: Chol/HDL Ratio 1.86 %
--- NOTE | 2020-01-06 12:26 | Discharge Summary ---
Providers - Providers Date of Admission: 01/03/20 12:51 Date of discharge: 01/06/20 Attending physician: ELLEN FRAGA 01/03/20 11:53 Consult to Physician [CONS] Urgent Comment: Consulting Provider: ELKIN HAINES Physician Instructions: Reason For Exam: Pulmonary edema, needs dialysis Primary care physician: [employer] MECH[employer]IC APPRENTICE Hospitalization Condition: Fair Hospital course: HPI 69 YO Male with ESRD on HD(T,R,Sa) last underwent dialysis 5 days ago, HTN, DM, CHF presents to ED for evaluation. Patient states that he has experienced shortness of breath over the past 1 day with worsening symptoms over the past 2 to 3 hours. EMS was notified and upon arrival the patient was found to be in distress with a pulse oximetry 70% on room air. Patient placed on submental oxygen and transported to [facility] for further care and evaluation of the aforementioned symptoms. Patient seen and evaluated in the emergency department. All lab and imaging studies reviewed. Patient found to have a pulse oximetry of 70% on room air which is consistent with acute hypoxemic respiratory failure. Patient also found to have end-stage renal disease, fluid overload in need of urgent dialysis. Nephrology team consulted in ED. Patient placed on noninvasive positive pressure ventilation with mild improvement in symptoms. The patient is lethargic and using accessory muscles to breathe during my exam and interview and is unable to provide further detailed history. No further history obtainable. No reports of fever, chills, chest pain, palpi tations, productive cough, skin rash, recent ill contacts, unilateral leg swelling, calf pain, or known exposure to COVID-19. All medication listed at time of admission has been reconciled. Advanced care planning conducted in ED. No prior admission for review. Hospital course Patient had hemodialysis with improvement of shortness of breath. Patient has been advised to continue hemodialysis schedule. Patient states that he will start hemodialysis when he goes [place]. He refuses to have showcase maker/SW set up hemodialysis in [place] or [place] for him. He mentions he will take care of that. He requests for lists and this was given to him. I have updated patients daughter and she says her father knows his health condition more than her and he has insisted he will return to [place] once he gets discharged. Patient's daughter also notified about ongoing plan. He will need to follow-up with pulmonology for sleep study and pulmonary function tests. Patient agrees with treatment and will be discharged today. He will follow-up with his medical doctors in the office. Disposition: DC-01 TO HOME OR SELFCARE - Discharge Diagnoses (1) Acute hypoxemic respiratory failure Status: Resolved (2) ESRD needing dialysis Status: Chronic (3) Hypertension Status: Chronic Qualifiers: Hypertension type: essential hypertension Qualified Code(s): I10 - Essential (primary) hypertension (4) Acute on chronic congestive heart failure Status: Resolved Qualifiers: Heart failure type: unspecified Qualified Code(s): I50.9 - Heart failure, unspecified Core Measure Documentation - Palliative Care Palliative Care/ Comfort Measures: Not Applicable - Core Measures Any of the following diagnoses?: none Exam - Constitutional Vitals: Temp Pulse Resp BP Pulse Ox 97.8 F 83 18 124/32 100 01/06/20 08:20 01/06/20 11:15 01/06/20 08:20 01/06/20 11:15 01/06/20 07:59 General appearance: Present: no acute distress, well-nourished - EENT Eyes: Present: PERRL ENT: hearing intact, clear oral mucosa - Neck Neck: Present: supple, normal ROM - Respiratory Respiratory effort: normal Respiratory: bilateral: CTA - Cardiovascular Heart Sounds: Present: S1 & S2. Absent: rub, click - Extremities Extremities: pulses symmetrical, No edema Peripheral Pulses: within normal limits - Abdominal General gastrointestinal: Present: soft, non-tender, non-distended, normal bowel sounds Male genitourinary: Present: normal - Integumentary Integumentary: Present: clear, warm, dry - Musculoskeletal Musculoskeletal: gait normal, strength equal bilaterally - Psychiatric Psychiatric: appropriate mood/affect, intact judgment & insight - Neurologic Neurologic: CNII-XII intact, moves all extremities Plan Diet: renal Additional Instructions: Continue Hemodialysis. Follow up with your doctors in [facility] immediately after discharge Follow up with: NARCISO ANGEL MD [Primary Care Provider] - 3-5 Days
--- NOTE | 2020-01-06 12:54 | Progress Note ---
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 Hemodialysis today for UF and clearance -Low potassium diet -Fluid restriction of 1 liter per day -Renally dose all medications -Strict I/Os monitoring -Assess dialysis needs daily -Discussed dialysis placement with Case Management, CM states patient is only visiting and plans to return to his home clinic out of state -Patient states he might be staying in [place] for 2 months, but not sure exactly how long before returning to [place], if so patient can be placed at [facility] located at [address] [place] [id number] Subjective Date of service: 01/06/20 Principal diagnosis: ESRD, volume overload, CHF exacerbation Interval history: Patient seen sitting up in bed. Requesting vaseline for lip. States he plans to go back to [place] but is staying with daughter for a little while possibly 2 months, states he thinks he may not need hemodialysis. Objective - Vital Signs Vital signs: Vital Signs - 12hr 01/06/20 01/06/20 01/06/20 04:01 04:20 07:59 Temperature 97.9 F 97.8 F Pulse Rate 83 88 83 Respiratory 18 20 Rate Blood Pressure 124/72 123/71 Blood Pressure [Right] O2 Sat by Pulse 100 100 Oximetry 01/06/20 01/06/20 01/06/20 08:20 08:30 08:45 Temperature 97.8 F Pulse Rate 81 78 93 H Respiratory 18 Rate Blood Pressure 140/43 142/25 175/87 Blood Pressure [Right] O2 Sat by Pulse Oximetry 01/06/20 01/06/20 01/06/20 09:00 09:15 09:30 Temperature Pulse Rate 78 76 75 Respiratory Rate Blood Pressure 157/27 150/40 146/51 Blood Pressure [Right] O2 Sat by Pulse Oximetry 01/06/20 01/06/20 01/06/20 09:45 10:00 10:15 Temperature Pulse Rate 76 73 81 Respiratory Rate Blood Pressure 133/44 140/58 143/27 Blood Pressure [Right] O2 Sat by Pulse Oximetry 01/06/20 01/06/20 01/06/20 10:30 10:45 11:00 Temperature Pulse Rate 78 80 77 Respiratory Rate Blood Pressure 131/33 145/54 132/38 Blood Pressure [Right] O2 Sat by Pulse Oximetry 01/06/20 01/06/20 11:15 12:43 Temperature 98.9 F Pulse Rate 83 86 Respiratory 18 Rate Blood Pressure 124/32 Blood Pressure 123/72 [Right] O2 Sat by Pulse 98 Oximetry - General Appearance General appearance: well-developed, appears stated age, fatigue EENT: ATNC, PERRL, hearing intact, vision intact Neck: no JVD, supple Respiratory: Present: Decreased Breath Sounds Cardiology: S1S2 Gastrointestinal: normoactive bowel sounds Integumentary: warm and dry Neurologic: alert and oriented x3 Musculoskeletal: joint swelling - Lab 01/03/20 09:11 01/03/20 09:11 Most recent lab results ABG pH 7.345 pH Units (7.350-7.450) L 01/03/20 08:10 ABG pCO2 34.7 mm Hg 01/03/20 08:10 ABG pO2 81.8 mm Hg (80.0-90.0) 01/03/20 08:10 ABG HCO3 18.5 mmol/L (20.0-26.0) L 01/03/20 08:10 ABG O2 Saturation 97.0 % (95.0-99.0) 01/03/20 08:10 Calcium 9.5 mg/dL (8.4-10.2) 01/03/20 09:11 Medications & Allergies - Medications Allergies/Adverse Reactions: Allergies morphine Allergy (Verified 01/03/20 08:24) Unknown Active Medications: Generic Name Dose Route Start Last Admin Trade Name Sorin PRN Reason Stop Dose Admin Acetaminophen 650 mg 01/03/20 12:51 Tylenol PO Q4H PRN Pain MILD(1-3)/Fever >100.5/MAYORGA Albuterol 2.5 mg 01/03/20 12:51 Proventil IH Q4H PRN Shortness Of Breath Sodium Chloride 100 mls @ 999 mls/hr 01/03/20 15:28 Nacl 0.9% IV PAULIE PRN Hypotension Ondansetron HCl 4 mg 01/03/20 12:51 Zofran IV Q8H PRN Nausea And Vomiting Sodium Chloride 10 ml 01/03/20 22:00 01/06/20 12:48 Sodium Chloride Flush Syringe 10 Ml IV 10 ml BID REED Administration Sodium Chloride 10 ml 01/03/20 12:51 Sodium Chloride Flush Syringe 10 Ml IV PRN PRN LINE FLUSH
--- NOTE | 2020-01-06 16:40 | Progress Note ---
Assessment and Plan Assessment and plan: (1) Acute hypoxemic respiratory failure Current Visit: Yes Status: Acute Plan to address problem: Improved. (2) End stage renal disease Current Visit: Yes Status: Acute Plan to address problem: HD today. He will need to have HD set up in [place] or [place]. Discussed with patients daughter - states patient is just visiting. She says she does not know much about his health condition but he has not been getting HD since he visited from [place] this month (3) Hypertension Current Visit: Yes Status: Acute Qualifiers: Hypertension type: essential hypertension Qualified Code(s): I10 - Essential (primary) hypertension Plan to address problem: Monitor blood pressure every shift, continue medical management. Blood pressure controlled (4) Obesity hypoventilation syndrome Current Visit: Yes Status: Acute Plan to address problem: Supplemental oxygen, nebulizer therapy, pulse oximetry, increase physical activity at discharge, outpatient pulmonary follow-up for sleep study. Patient counseled about losing weight in the long-term (5) DVT prophylaxis Current Visit: Yes Status: Acute Plan to address problem: SCD to bilateral lower extremities while in bed, (6) Advance care planning Current Visit: Yes Status: Acute Plan to address problem: Disease education conducted, patient is full code, prognosis discussed, patient knowledges understanding and agreement with care plan, +30 minutes. Needs to have HD arrangement prior to DC - Patient Problems (1) Acute hypoxemic respiratory failure Current Visit: Yes Status: Acute (2) ESRD needing dialysis Current Visit: Yes Status: Acute (3) Hypertension Current Visit: Yes Status: Acute Qualifiers: Hypertension type: essential hypertension Qualified Code(s): I10 - Essential (primary) hypertension History Interval history: See assessment and plan Hospitalist Physical - Constitutional Vitals: Temp Pulse Resp BP Pulse Ox 97.6 F 93 H 20 121/62 92 01/06/20 15:20 01/06/20 15:20 01/06/20 15:20 01/06/20 15:20 01/06/20 15:20 General appearance: Present: no acute distress - EENT Eyes: Present: PERRL - Respiratory Respiratory: bilateral: diminished - Cardiovascular Heart Sounds: Present: S1 & S2 - Extremities Extremities: no ischemia - Abdominal General gastrointestinal: soft, non-tender, non-distended, normal bowel sounds - Psychiatric Psychiatric: appropriate mood/affect - Neurologic Neurologic: CNII-XII intact HEART Score - HEART Score Troponin: Troponin T 0.068 ng/mL (0.00-0.029) H 01/03/20 09:11 Results - Labs CBC & Chem 7: 01/03/20 09:11 01/03/20 09:11 Labs: Laboratory Last Values WBC 5.7 K/mm3 (4.5-11.0) 01/03/20 09:11 RBC 3.45 M/mm3 (3.65-5.03) L 01/03/20 09:11 Hgb 8.6 gm/dl (11.8-15.2) L 01/03/20 09:11 Hct 29.0 % (35.5-45.6) L 01/03/20 09:11 MCV 84 fl (84-94) 01/03/20 09:11 MCH 25 pg (28-32) L 01/03/20 09:11 MCHC 30 % (32-34) L 01/03/20 09:11 RDW 19.3 % (13.2-15.2) H 01/03/20 09:11 Plt Count 211 K/mm3 (140-440) 01/03/20 09:11 Lymph % (Auto) 5.9 % (13.4-35.0) L 01/03/20 09:11 Sharkey % (Auto) 10.6 % (0.0-7.3) H 01/03/20 09:11 Eos % (Auto) 0.7 % (0.0-4.3) 01/03/20 09:11 Baso % (Auto) 1.1 % (0.0-1.8) 01/03/20 09:11 Lymph # (Auto) 0.3 K/mm3 (1.2-5.4) L 01/03/20 09:11 Sharkey # (Auto) 0.6 K/mm3 (0.0-0.8) 01/03/20 09:11 Eos # (Auto) 0.0 K/mm3 (0.0-0.4) 01/03/20 09:11 Baso # (Auto) 0.1 K/mm3 (0.0-0.1) 01/03/20 09:11 Seg Neutrophils % 81.7 % (40.0-70.0) H 01/03/20 09:11 Seg Neutrophils # 4.7 K/mm3 (1.8-7.7) 01/03/20 09:11 PT 15.3 Sec. (12.2-14.9) H 01/03/20 09:11 INR 1.18 (0.87-1.13) H 01/03/20 09:11 ABG pH 7.345 pH Units (7.350-7.450) L 01/03/20 08:10 ABG pCO2 34.7 mm Hg 01/03/20 08:10 ABG pO2 81.8 mm Hg (80.0-90.0) 01/03/20 08:10 ABG HCO3 18.5 mmol/L (20.0-26.0) L 01/03/20 08:10 ABG O2 Saturation 97.0 % (95.0-99.0) 01/03/20 08:10 ABG O2 Content 11.2 (0.0-44) 01/03/20 08:10 ABG Base Excess -6.5 mmol/L (-2.0-3.0) L 01/03/20 08:10 ABG Hemoglobin 8.4 gm/dl (14.0-18.0) L 01/03/20 08:10 ABG Carboxyhemoglobin 2.3 % (0.0-5.0) 01/03/20 08:10 ABG Methemoglobin 0.4 % (0.0-1.5) 01/03/20 08:10 Oxyhemoglobin 94.3 % (95.0-99.0) L 01/03/20 08:10 FiO2 35 % 01/03/20 08:10 Sodium 138 mmol/L (137-145) 01/03/20 09:11 Potassium 5.3 mmol/L (3.6-5.0) H 01/03/20 09:11 Chloride 104.6 mmol/L (98-107) 01/03/20 09:11 Carbon Dioxide 12 mmol/L (22-30) L 01/03/20 09:11 Anion Gap 27 mmol/L 01/03/20 09:11 BUN 78 mg/dL (9-20) H 01/03/20 09:11 Creatinine 3.6 mg/dL (0.8-1.3) H 01/03/20 09:11 Estimated GFR 20 ml/min 01/03/20 09:11 BUN/Creatinine Ratio 22 % 01/03/20 09:11 Glucose 143 mg/dL (75-100) H 01/03/20 09:11 POC Glucose 114 mg/dL (70-105) H 01/06/20 08:18 Calcium 9.5 mg/dL (8.4-10.2) 01/03/20 09:11 Total Creatine Kinase 92 units/L (55-170) 01/03/20 09:11 CK-MB (CK-2) 4.9 ng/mL (0.0-4.0) H 01/03/20 09:11 CK-MB (CK-2) Rel Index 5.3 (0-4) H 01/03/20 09:11 Troponin T 0.068 ng/mL (0.00-0.029) H 01/03/20 09:11 NT-Pro-B Natriuret Pep 25022 pg/mL (0-900) H 01/03/20 09:11 Triglycerides 142 mg/dL (2-149) 01/03/20 09:11 Cholesterol 198 mg/dL (50-199) 01/03/20 09:11 LDL Cholesterol Direct 71 mg/dL (50-130) 01/03/20 09:11 HDL Cholesterol 106 mg/dL (40-59) H 01/03/20 09:11 Cholesterol/HDL Ratio 1.86 % 01/03/20 09:11 Hepatitis A IgM Ab Non-reactive (NonReactive) 01/03/20 14:44 Hep Bs Antigen Non-reactive (Negative) 01/03/20 14:44 Hep B Core IgM Ab Non-reactive (NonReactive) 01/03/20 14:44 Hepatitis C Antibody Non-reactive (NonReactive) 01/03/20 14:44 Albarran/IV: Voiding Method Urinal IV Catheter Type [Right Hand] INT / Saline Lock Active Medications - Current Medications Current Medications: Generic Name Dose Route Start Last Admin Trade Name Freq PRN Reason Stop Dose Admin Acetaminophen 650 mg 01/03/20 12:51 Tylenol PO Q4H PRN Pain MILD(1-3)/Fever >100.5/MAYORGA Albuterol 2.5 mg 01/03/20 12:51 Proventil IH Q4H PRN Shortness Of Breath Sodium Chloride 100 mls @ 999 mls/hr 01/03/20 15:28 Nacl 0.9% IV PAULIE PRN Hypotension Ondansetron HCl 4 mg 01/03/20 12:51 Zofran IV Q8H PRN Nausea And Vomiting Sodium Chloride 10 ml 01/03/20 22:00 01/06/20 12:48 Sodium Chloride Flush Syringe 10 Ml IV 10 ml BID REED Administration Sodium Chloride 10 ml 01/03/20 12:51 Sodium Chloride Flush Syringe 10 Ml IV PRN PRN LINE FLUSH
[2020-01-07 14:32] VITALS: BP 117/67
--- NOTE | 2020-01-07 14:54 | Progress Note ---
Assessment and Plan Assessment: ESRD on Hemodialysis: Hyperkalemia: Volume overload: HTN: DM2: CHF: ACD due to ESRD: Plan: -Hemodialysis today for UF and clearance -Low potassium diet -Fluid restriction of 1 liter per day -Renally dose all medications -Strict I/Os monitoring -Assess dialysis needs daily -Discussed dialysis placement with Case Management, states patient is only visiting and plans to return to his [place] clinic [place] of state -Patient states he might be staying in [place] for 2 months, but not sure exactly how long before returning to [place], if so patient can be placed at [facility] located at [address] [place] [address] -If patient continues to refuse HD placement in [place] then can D/C home and return to [facility] for dialysis weekly while visiting until returns back to [place]. Subjective Date of service: 01/07/20 Principal diagnosis: ESRD, volume overload, CHF exacerbation Interval history: Patient refusing HD arrangement in [place], wants HD list for [place] Objective - Vital Signs Vital signs: Vital Signs - 12hr 01/07/20 01/07/20 01/07/20 03:58 04:02 07:52 Temperature 98.2 F 98.2 F Pulse Rate 87 87 83 Respiratory 18 18 Rate Blood Pressure 118/68 131/69 O2 Sat by Pulse 96 100 Oximetry O2 Sat by Pulse Oximetry [ Anterior Bilateral Throughout] 01/07/20 01/07/20 01/07/20 08:36 09:20 09:30 Temperature 98.7 F Pulse Rate 87 78 Respiratory 20 Rate Blood Pressure 126/66 128/71 O2 Sat by Pulse 100 Oximetry O2 Sat by Pulse Oximetry [ Anterior Bilateral Throughout] 01/07/20 01/07/20 01/07/20 09:45 10:00 10:15 Temperature Pulse Rate 77 54 L 81 Respiratory Rate Blood Pressure 117/58 104/57 111/51 O2 Sat by Pulse Oximetry O2 Sat by Pulse Oximetry [ Anterior Bilateral Throughout] 01/07/20 01/07/20 01/07/20 10:30 10:45 11:00 Temperature Pulse Rate 60 82 67 Respiratory Rate Blood Pressure 124/62 115/71 120/57 O2 Sat by Pulse Oximetry O2 Sat by Pulse Oximetry [ Anterior Bilateral Throughout] 01/07/20 01/07/20 01/07/20 11:15 11:30 11:45 Temperature Pulse Rate 55 L 60 65 Respiratory Rate Blood Pressure 110/54 102/65 104/50 O2 Sat by Pulse Oximetry O2 Sat by Pulse Oximetry [ Anterior Bilateral Throughout] 01/07/20 01/07/20 01/07/20 12:00 12:15 12:30 Temperature Pulse Rate 71 66 65 Respiratory Rate Blood Pressure 114/52 131/59 141/73 O2 Sat by Pulse Oximetry O2 Sat by Pulse Oximetry [ Anterior Bilateral Throughout] 01/07/20 01/07/20 12:45 13:00 Temperature 98.2 F Pulse Rate 84 82 Respiratory 18 Rate Blood Pressure 112/67 117/67 O2 Sat by Pulse Oximetry O2 Sat by Pulse 98 Oximetry [ Anterior Bilateral Throughout] - General Appearance General appearance: well-developed, fatigue EENT: ATNC, PERRL, hearing intact, vision intact Neck: no JVD, supple Respiratory: Present: Decreased Breath Sounds Cardiology: S1S2 Gastrointestinal: normoactive bowel sounds Neurologic: alert and oriented x3 Musculoskeletal: decreased ROM - Lab 01/03/20 09:11 01/03/20 09:11 Most recent lab results ABG pH 7.345 pH Units (7.350-7.450) L 01/03/20 08:10 ABG pCO2 34.7 mm Hg 01/03/20 08:10 ABG pO2 81.8 mm Hg (80.0-90.0) 01/03/20 08:10 ABG HCO3 18.5 mmol/L (20.0-26.0) L 01/03/20 08:10 ABG O2 Saturation 97.0 % (95.0-99.0) 01/03/20 08:10 Calcium 9.5 mg/dL (8.4-10.2) 01/03/20 09:11 Medications & Allergies - Medications Allergies/Adverse Reactions: Allergies morphine Allergy (Verified 01/03/20 08:24) Unknown Active Medications: Generic Name Dose Route Start Last Admin Trade Name Freq PRN Reason Stop Dose Admin Acetaminophen 650 mg 01/03/20 12:51 Tylenol PO Q4H PRN Pain MILD(1-3)/Fever >100.5/MAYORGA Albuterol 2.5 mg 01/03/20 12:51 Proventil IH Q4H PRN Shortness Of Breath Sodium Chloride 100 mls @ 999 mls/hr 01/03/20 15:28 Nacl 0.9% IV PAULIE PRN Hypotension Ondansetron HCl 4 mg 01/03/20 12:51 Zofran IV Q8H PRN Nausea And Vomiting Sodium Chloride 10 ml 01/03/20 22:00 01/06/20 21:34 Sodium Chloride Flush Syringe 10 Ml IV 10 ml BID REED Administration Sodium Chloride 10 ml 01/03/20 12:51 Sodium Chloride Flush Syringe 10 Ml IV PRN PRN LINE FLUSH
== END 2020-01-07 17:11 | disposition home or self-care (01) | DRG 291 ==
LOC: ED 07:47 → IMCU 12:51 → 4A 01-04 21:54
PROVIDERS: ADMIT Internal Medicine; ATTEND Internal Medicine
PROC: 5A1D70Z Performance of Urinary Filtration, Intermittent, Less than 6 Hours Per Day (ICD-10-PCS; principal; 2020-01-03)
PROC: 5A09357 Assistance with Respiratory Ventilation, Less than 24 Consecutive Hours, Continuous Positive Airway Pressure (ICD-10-PCS; 2020-01-03)
PROC: 4A033R1 Measurement of Arterial Saturation, Peripheral, Percutaneous Approach (ICD-10-PCS; 2020-01-03)
PROC: 5A1D70Z Performance of Urinary Filtration, Intermittent, Less than 6 Hours Per Day (ICD-10-PCS; 2020-01-04)
PROC: 5A1D70Z Performance of Urinary Filtration, Intermittent, Less than 6 Hours Per Day (ICD-10-PCS; 2020-01-06)
PROC: 5A1D70Z Performance of Urinary Filtration, Intermittent, Less than 6 Hours Per Day (ICD-10-PCS; 2020-01-07)
DX: I13.2 Hypertensive heart and chronic kidney disease with heart failure and with stage 5 chronic kidney disease, or end stage renal disease (principal); J96.01 Acute respiratory failure with hypoxia; N18.6 End stage renal disease; E66.2 Morbid (severe) obesity with alveolar hypoventilation; E87.5 Hyperkalemia; E11.22 Type 2 diabetes mellitus with diabetic chronic kidney disease; Z99.2 Dependence on renal dialysis; E87.70 Fluid overload, unspecified; I50.9 Heart failure, unspecified; Z82.49 Family history of ischemic heart disease and other diseases of the circulatory system; Z83.3 Family history of diabetes mellitus; Z68.37 Body mass index [BMI] 37.0-37.9, adult; D63.1 Anemia in chronic kidney disease; Z88.5 Allergy status to narcotic agent
CPT/HCPCS: 36415; 36600; 71045; 80048; 80061; 80074; 82550; 82553; 82803; 82962; 83880; 84484; 85025; 85610; 93005; 94660; 94760; G0378